=== PATIENT | female | born 1995 | race Hispanic/Latino ===

== ENCOUNTER 2016-09-07 22:06 | Emergency (ER) | payer BC, MEDICAID ==
[2016-09-07 22:27] VITALS: BP 119/75
--- NOTE | 2016-09-08 00:05 | EDM.PDOC ---
ED HPI GENERAL MEDICAL PROBLEM - General Chief Complaint: ENT Problem Stated Complaint: COUGH Time Seen by Provider: 09/07/16 22:27 Source of Information: Reports: Patient History Limitations: Reports: No Limitations - History of Present Illness INITIAL COMMENTS - FREE TEXT/NARRATIVE: HISTORY AND PHYSICAL: History of present illness: [20-year-old female 6 months now complaining of cough. Patient been seen earlier complaining of cough and sinus congestion. She was given amoxicillin. With which she has been compliant. Patient states she still has sinus congestion so she came to the emergency department tonight no abdominal pain pelvic pain and vaginal bleeding contractions discharge or urinary symptoms. Patient has no headache or stiff neck. She has no visual changes. Other than sinus congestion and occasional cough she feels baseline] Review of systems: As per history of present illness and below otherwise all systems reviewed and negative. Past medical history: As per history of present illness and as reviewed below otherwise noncontributory. Surgical history: As per history of present illness and as reviewed below otherwise noncontributory. Social history: No reported history of drug or alcohol abuse. Family history: As per history of present illness and as reviewed below otherwise noncontributory. Physical exam: HEENT: Atraumatic, normocephalic, pupils reactive, negative for conjunctival pallor or scleral icterus, mucous membranes moist, throat clear, neck supple, nontender, trachea midline. Lungs: Clear to auscultation, breath sounds equal bilaterally, chest nontender. Heart: S1S2, regular, negative for clicks, rubs, or JVD. Abdomen: Soft, nondistended, nontender. Negative for masses or hepatosplenomegaly. Negative for costovertebral tenderness. Pelvis: Stable nontender. Genitourinary: Deferred. Rectal: Deferred. Extremities: Atraumatic, negative for cords or calf pain. Neurovascular unremarkable. Neuro: Awake, alert, oriented. Cranial nerves grossly unremarkable. Cerebellum unremarkable. Motor and sensory unremarkable throughout. Exam nonfocal. Diagnostics: [] Therapeutics: [] Impression: [] Plan: [Signs and symptoms consistent with viral syndrome in a well-appearing patient. Patient seen by [facility] nurse in ED and monitoring determined she has no evidence of labor. Patient has no abdominal or pelvic symptoms whatsoever. She has normal respiratory rate and pulse ox. Her lungs are clear. Patient has mild sinus congestion with clear rhinorrhea. I discussed with her the possibility of viral etiology alone. No further workup or treatment indicated. Patient agrees with outpatient follow-up and strict return precautions given sinus pressure Pain Score (Numeric/FACES): 7 - Related Data Allergies Allergy/AdvReac Type Severity Reaction Status Date / Time codeine Allergy Hives Verified 09/07/16 22:23 Home Meds: Home Meds Oxymetazoline [Afrin Original 0.05% Nasal [place]] 15 ml MILAGRO Q12HR #1 bottle 04/29 [Rx] Amoxicillin/Potassium Clav [Amox Tr-K Clv 875-125 mg Tab] 1 each PO BID [History] Pseudoephedrine [Sudogest] 30 mg PO QID 09/07/16 [History] Past Medical History HEENT History: Reports: None Gastrointestinal History: Reports: None [facility] History: Reports: , Other (See Below) Other OB/BYN History: control removed in arm "exoplanen" - Past Surgical History HEENT Surgical History: Reports: None GI Surgical History: Reports: Appendectomy Social & Family History - Family History Family Medical History: Noncontributory - Tobacco Use Smoking Status *Q: Never Smoker Years of Tobacco use: 4 Packs/Tins Daily: 0.2 - Caffeine Use Caffeine Use: Reports: None - Recreational Drug Use Recreational Drug Use: No ED ROS GENERAL - Review of Systems Review Of Systems: See Below (Per history of present illness) ED EXAM, GENERAL - Physical Exam Exam: See Below (Per history of present illness) Course - Vital Signs Last Recorded V/S: Last Vital Signs Temp 36.4 C 09/07/16 22:24 Pulse 107 H 09/07/16 22:24 Resp 18 09/07/16 22:24 BP 119/75 09/07/16 22:24 Pulse Ox 99 09/07/16 22:24 Departure - Departure Time of Disposition: 00:15 Disposition: Home, Self-Care 01 Condition: good Clinical Impression: Bronchitis Clinical Impression: (Ruled Out): URI (upper respiratory infection) - Discharge Information Instructions: Acute Bronchitis, [id number] Referrals: PCP,None [Primary Care Provider] - Forms: ED Department Discharge Additional Instructions: Your symptoms are consistent with bronchitis. Typically this is caused by a viral infection but occasionally there can be a bacterial infection instead of or in addition to the virus. Rest and drink plenty of fluids. Finish her anabolic as previously prescribed, follow up with your primary care doctor tomorrow and return immediately for new severe or worsening symptoms. Be sure to stay well-hydrated since she were . The evaluation of your today did not show any abnormalities or labor. Follow-up with your [facility] doctor.
== END 2016-09-08 00:32 | disposition home or self-care (01) ==
LOC: MW.ED 22:06
DX: J40 Bronchitis, not specified as acute or chronic (principal); Z88.5 Allergy status to narcotic agent; Z90.49 Acquired absence of other specified parts of digestive tract
CPT/HCPCS: 99282; 99283